=== PATIENT | female | born 1975 | race Caucasian/White ===

== ENCOUNTER 2016-07-05 09:42 | Emergency (ER) | payer SELFPAY ==
[~2016-07-05] VITALS: Wt 100.0 kg
[~2016-07-05 09:42] MED LIST: ALBU8.5H5 INH; DICY10CA60 PO; DIPH1TAB25 PO; HYDR-3498 PO; IBUP-1542 PO; NAPR-260 PO
[2016-07-06] MEDS ORDERED: CETI10CA PO (19:30)
[2016-07-06] MEDS ORDERED: GUAI473L22 PO (19:30)
[2016-07-06] MEDS ORDERED: ALBU8.5H3 INH (19:30)
[2016-07-06] MEDS ORDERED: IBUP-1542 PO (19:30)
[2016-07-06] MEDS ORDERED: PRED50TA PO (19:30)
== END 2016-07-05 10:45 | disposition left against medical advice (07) ==
LOC: FTE 09:42
DX: Z53.21 Procedure and treatment not carried out due to patient leaving prior to being seen by health care provider (principal)

== ENCOUNTER 2016-07-06 18:23 | Emergency (ER) | payer OTHER ==
[~2016-07-06] VITALS: Ht 162.6 cm; Wt 102.5 kg
[2016-07-06 19:17] VITALS: Ht 162.6 cm; Wt 102.5 kg
[2016-07-06] MEDS ORDERED: PRED50TA PO (19:30)
[2016-07-06] MEDS ORDERED: GUAI473L22 PO (19:30)
[2016-07-06] MEDS ORDERED: ALBU8.5H3 INH (19:30)
[2016-07-06] MEDS ORDERED: IBUP-1542 PO (19:30)
[2016-07-06] MEDS ORDERED: CETI10CA PO (19:30)
--- NOTE | 2016-07-06 19:39 | ERD ---
ER Documentation Chief Complaint Date/Time DATE: 07/06/16 TIME: 19:37 Chief Complaint cough x 3 days HPI 40-year-old female presents here in emergency department for complaints of cough for 3 days. Patient has been having dry cough, does not cough up any phlegm or blood. Patient Is a wheezing at times. Patient has been having runny nose, nasal congestion clear nasal discharge. Patient has been having on and off fever. Patient's son is sick with the same symptoms. Patient does not have any chest pain or palpitations. Patient denies any dyspnea on exertion or dyspnea on lying down. Patient did not take any medications of symptoms. ROS All systems reviewed and are negative except as per history of present illness. Medications Home Meds Active Scripts Prednisone* (Prednisone*) 50 Mg Tablet, 50 MG PO DAILY, #5 TAB Prov:ANEUDY HERNÁNDEZ NP 07/06/16 Cetirizine Hcl* (Zyrtec*) 10 Mg Capsule, 10 MG PO DAILY, #30 TAB.CHEW Prov:ANEUDY HERNÁNDEZ NP 07/06/16 Ibuprofen* (Motrin*) 600 Mg Tab, 600 MG PO Q6H Y for PAIN AND OR ELEVATED TEMP, #30 TAB Prov:ANEUDY HERNÁNDEZ NP 07/06/16 Albuterol Sulfate* (Proair HFA*) 8.5 Gm Hfa.aer.ad, 2 PUFF INH Q4H Y for WHEEZING AND SOB, #1 INHALER Prov:ANEUDY HERNÁNDEZ NP 07/06/16 Guaifenesin-Codeine Phosphate* (Guaifenesin* AC Cough Syrup) 473 Ml Liquid, 10 ML PO Q4H Y for COUGH, #120 ML Prov:ANEUDY HERNÁNDEZ NP 07/06/16 Ibuprofen* (Motrin*) 600 Mg Tab, 600 MG PO Q6, #30 TAB Prov:KAILEY COATS 01/04/16 Naproxen* (Naprosyn*) 500 Mg Tablet, 500 MG PO BID Y for PAIN AND/OR INFLAMMATION for 7 Days, TAB Prov:SMITA LANCASTER NP 03/08/15 Hydrocodone Bit-Acetaminophen* ([place]*) 5-325 Mg Tab, 1 TAB PO Q6 Y for PAIN, # 20 TAB Prov:ANEUDY HERNÁNDEZ GRIFFITH TGretel [employer] 02/05/15 Albuterol Sulfate* (Albuterol Sulfate* HFA) 8.5 Gm Hfa.aer.ad, 1-2 PUFF INH Q4 Y for SHORTNESS OF BREATH, #1 EA Prov:KAILEY COATS C 01/25/15 Diphenoxylate Hcl-Atropine* (Lomotil*) 1 Tab Tab, 1 TAB PO QID Y for DIARRHEA, # 10 Prov:BUSTAMANTE,NIDIA 11/01/14 Dicyclomine Hcl* (Bentyl*) 10 Mg Capsule, 10 MG PO QID Y for PAIN, #10 CAP Prov:BUSTAMANTE,NIDIA 11/01/14 Allergies Allergies: Coded Allergies: No Known Drug Allergies (Verified Allergy, Mild, 11/01/14) PMhx/Soc History of Surgery: Yes (cholecystectomy) Anesthesia Reaction: No Hx Neurological Disorder: No Hx Respiratory Disorders: Yes (asthma) Hx Cardiac Disorders: No Hx Psychiatric Problems: No Hx Miscellaneous Medical Probl: No Hx Alcohol Use: No Hx Substance Use: No Hx Tobacco Use: No FmHx Family History: No coronary disease, No diabetes, No other Physical Exam Vitals Vital Signs Date Time Temp Pulse Resp B/P Pulse Ox O2 Delivery O2 Flow Rate FiO2 07/06/16 19:17 100.5 98 20 125/88 100 Physical Exam GENERAL: The patient is well developed and appropriate for usual state of health, in no apparent distress. HEENT: Atraumatic. Ears: Normal tympanic membrane, no erythema or bulging. No ear canal swelling. No ear discharge. Nose: Erythematous nasal turbinates with clear nasal discharge. Throat: oropharynx erythematous with postnasal drip. No tonsillar swelling or tonsillar exudates. No lymphadenopathy. CHEST: Clear to auscultation bilaterally. There are no rales, wheezes or rhonchi. HEART: Regular rate and rhythm. No murmurs, clicks, rubs or gallops. No S3 or S4. ABDOMEN: Soft, nontender and nondistended. Good bowel sounds. No rebound or guarding. No gross peritonitis. No gross organomegaly or masses. No Campbell sign or McBurney point tenderness. BACK: No midline or flank tenderness. EXTREMITIES: Equal pulses bilaterally. There is no peripheral clubbing, cyanosis or edema. No focal swelling or erythema. Full range of motion. Grossly neurovascularly intact. NEURO: Alert and oriented. Cranial nerves 2-12 intact. Motor strength in all 4 extremities with 5/5 strength. Sensation grossly intact. Normal speech and gait. SKIN: There is no apparent rash or petechia. The skin is warm and dry. HEMATOLOGIC AND LYMPHATIC: There is no evidence of excessive bruising or lymphedema. No gross cervical, axillary, or inguinal lymphadenopathy. Procedures/MDM Medical Decision Making: Patient symptoms are most likely consistent with acute bronchitis, which viral in origin. There is low suspicion for Pneumonia at this time since patients lungs sounds are clear, patient O2 saturation is normal and patient doesnt show any respiratory distress. Radiology exam is not indicated at this time. Patient does not have any wheezing at this time. There is low suspicion for other cardiopulmonary emergencies at this time such as CHF , Pulmonary Embolism, Pneumothorax, Aortic Aneurysm or any other cardiopulmonary emergencies at this time. There is low suspicion for sepsis. Patient appears well and is hemodynamically stable. Fever is controlled with medicines. Disposition: Home. Condition: Stable Prescriptions: Guaifenesin with codeine, Zyrtec, ibuprofen, albuterol Instructions: Patient is advised to take medications as prescribed. Patient is advised to rest. Patient advised to increase fluid intake, do humidifier at home and if possible, do salt water gargles. Patient is advised that if symptoms are worse, shortness of breath, uncontrolled fever, stridor, vomiting, worst signs and symptoms to return to emergency department immediately. Otherwise, patient is advised to follow up with primary doctor in 5-7 days. Departure Diagnosis: Primary Impression: Acute bronchitis Bronchitis organism: unspecified organism Qualified Code: J20.9 - Acute bronchitis, unspecified organism Condition: Stable Patient Instructions: Bronchitis With Wheezing (Adult) ANEUDY HERNÁNDEZ NP Jul 06, 2016 19:39
== END 2016-07-06 19:32 | disposition home or self-care (01) ==
LOC: E/R 18:23
DX: J20.9 Acute bronchitis, unspecified (principal); J45.909 Unspecified asthma, uncomplicated
CPT/HCPCS: 99284

== ENCOUNTER 2016-07-25 20:37 | Emergency (ER) | payer OTHER ==
[~2016-07-25] VITALS: Ht 170.2 cm; Wt 97.7 kg
[~2016-07-25 20:37] MED LIST changes: +ALBU8.5H3 INH; +CETI10CA PO; +GUAI473L22 PO; +PRED50TA PO
[2016-07-25 21:17] VITALS: Ht 170.2 cm; Wt 97.7 kg
[2016-07-25] MEDS ORDERED: IBUPROFEN 600 MG TAB PO STA (22:51)
--- NOTE | 2016-07-25 23:34 | RADRPT ---
PROCEDURE: XR Chest. CLINICAL INDICATION: Shortness of breath. Cough TECHNIQUE: Portable AP semi erect view of the chest was obtained. COMPARISON: 01/25/2015 FINDINGS: The cardiomediastinal silhouette is within normal limits. The lungs are clear. There is no evidenc e for pleural effusion, pneumothorax or pulmonary vascular congestion. The osseous structures are i ntact with no evidence for acute abnormality. RPTAT:HJJR IMPRESSION: No evidence for acute intrathoracic pathology. Physician Yeison Date Time Electronically viewed and signed by Russ Ragland Physician on 07/25/2016 23:34 /
[2016-07-25] MEDS ORDERED: LORA1TAB54 PO (23:44)
[2016-07-25] MEDS ORDERED: IBUP400T22 PO (23:44)
[2016-07-25] MEDS ORDERED: ACET325T33 PO (23:44)
[2016-07-25 23:50] VITALS: BP 121/74; PULSE 93; RESP 18; TEMP 98.7
--- NOTE | 2016-09-25 16:50 | ERD ---
ER Documentation Chief Complaint Date/Time DATE: 07/25/16 TIME: 16:48 Chief Complaint COUGH, FEVER SORE THROAT X 4 DAYS. HPI This is a 40-year-old female presenting to the emergency department complaining of cough, fever, sore throat for the past 4 days. Patient is rating this moderate in severity. Patient does admit to having mild chest pain with cough. She denies any shortness of breath. She denies nausea, vomiting, diarrhea ROS All systems reviewed and are negative except as per history of present illness. Medications Home Meds Active Scripts Loratadine/Pseudoephedrine* (Claritin-D* 12 Hr) 5-120 Mg Tab.er.12h, 1 TAB PO Q12, #15 TAB.SA Prov:KIESHA HEDRICK PA-C 07/25/16 Acetaminophen* (Tylenol*) 325 Mg Tablet, 2 TAB PO Q6 Y for PAIN AND OR ELEVATED TEMP, #30 TAB Prov:KIESHA HEDRICK PA-C 07/25/16 Ibuprofen* (Motrin*) 400 Mg Tab, 400 MG PO Q6H Y for PAIN AND OR ELEVATED TEMP, #30 TAB Prov:KIESHA HEDRICK PA-C 07/25/16 Prednisone* (Prednisone*) 50 Mg Tablet, 50 MG PO DAILY, #5 TAB Prov:ANEUDY HERNÁNDEZ NP 07/06/16 Cetirizine Hcl* (Zyrtec*) 10 Mg Capsule, 10 MG PO DAILY, #30 TAB.CHEW Prov:ANEUDY HERNÁNDEZ NP 07/06/16 Ibuprofen* (Motrin*) 600 Mg Tab, 600 MG PO Q6H Y for PAIN AND OR ELEVATED TEMP, #30 TAB Prov:ANEUDY HERNÁNDEZ NP 07/06/16 Albuterol Sulfate* (Proair HFA*) 8.5 Gm Hfa.aer.ad, 2 PUFF INH Q4H Y for WHEEZING AND SOB, #1 INHALER Prov:ANEUDY HERNÁNDEZ NP 07/06/16 Guaifenesin-Codeine Phosphate* (Guaifenesin* AC Cough Syrup) 473 Ml Liquid, 10 ML PO Q4H Y for COUGH, #120 ML Prov:ANEUDY HERNÁNDEZ LVN LPN 07/06/16 Ibuprofen* (Motrin*) 600 Mg Tab, 600 MG PO Q6, #30 TAB Prov:KAILEY COATS 01/04/16 Naproxen* (Naprosyn*) 500 Mg Tablet, 500 MG PO BID Y for PAIN AND/OR INFLAMMATION for 7 Days, TAB Prov:LANCASTERSMITA STONER I. LVN LPN 03/08/15 Hydrocodone Bit-Acetaminophen* ([place]*) 5-325 Mg Tab, 1 TAB PO Q6 Y for PAIN, # 20 TAB Prov:ANEUDY HERNÁNDEZ LVN LPN 02/05/15 Albuterol Sulfate* (Albuterol Sulfate* HFA) 8.5 Gm Hfa.aer.ad, 1-2 PUFF INH Q4 Y for SHORTNESS OF BREATH, #1 EA Prov:KAILEY COATS 01/25/15 Diphenoxylate Hcl-Atropine* (Lomotil*) 1 Tab Tab, 1 TAB PO QID Y for DIARRHEA, # 10 Prov:BUSTAMANTE,NIDIA 11/01/14 Dicyclomine Hcl* (Bentyl*) 10 Mg Capsule, 10 MG PO QID Y for PAIN, #10 CAP Prov:BUSTAMANTE,NIDIA 11/01/14 Allergies Allergies: Coded Allergies: No Known Drug Allergies (Verified Allergy, Mild, 11/01/14) PMhx/Soc History of Surgery: Yes (cholecystectomy) Anesthesia Reaction: No Hx Neurological Disorder: No Hx Respiratory Disorders: Yes (asthma) Hx Cardiac Disorders: No Hx Psychiatric Problems: No Hx Miscellaneous Medical Probl: No Hx Alcohol Use: No Hx Substance Use: No Hx Tobacco Use: No Smoking Status: Never smoker Physical Exam Physical Exam GENERAL: well-developed/well-nourished, in no apparent distress, non-toxic appearing HEAD: NC/AT, no swelling noted in frontal or maxillary areas EARS: bilateral tympanic membrane is intact without erythema or effusion NARES: congested THROAT: oropharynx erythematous without exudates, no tonsil enlargement, post nasal drip EYES: Conjunctiva normal NECK: Supple, no lymphadenopathy PULM: CTA bilaterally, no rales, rhonchi, or wheezing heard CV: Normal S1S2, RRR, good capillary refill GI: Soft, non-distended, normal bowel sounds, non-tender BACK: No midline tenderness, no masses EXT No clubbing, cyanosis, or edema NEURO: Alert and Orientated SKIN: Intact, normal turgor PSYCH: Normal mood and mentation Results 24 hrs Current Medications Medications (Trade) Dose Ordered Sig/[place] Route PRN Reason Start Time Stop Time Status Last Admin Dose Admin Ibuprofen (Motrin) 600 mg ONCE STAT PO 07/25/16 22:51 07/25/16 22:53 DC 07/25/16 23:12 Procedures/MDM MDM: 40-year-old female presents to the ER with upper respiratory infection, which is most likely viral. My clinical suspicion is low suspicion for pneumonia , strep pharyngitis, or pulmonary emergencies due to physical examination. Patient's lungs were clear on examination. X-ray of the chest has been done in the ED and radiologist stated: No evidence for acute intrathoracic pathology. There is no evidence of any pneumothorax, pleural effusion or infiltrates. hemodynamically stable for discharge. Prescription given to patient, discussed to return to the ED if not improving as expected or follow-up with a primary care physician. Patient understood and agreed with this plan. Departure Diagnosis: Primary Impression: URI (upper respiratory infection) Condition: Stable Patient Instructions: Preventing Common Respiratory Infections, Uri, Viral, No Abx (Adult) Additional Instructions: Visite a cesar jigna giraldo para un EXAMEN.Regrese a estas instalaciones si no se mejora jackie esperbamos o jackie le dijimos. [place] toda la medicina carol y jackie se le indic. Regrese a estas instalaciones si no se mejora jackie esperbamos o jackie le dijimos. KIESHA HEDRICK PA-C Sep 25, 2016 16:50
== END 2016-07-25 23:50 | disposition home or self-care (01) ==
LOC: FTE 20:37
DX: J06.9 Acute upper respiratory infection, unspecified (principal); J45.909 Unspecified asthma, uncomplicated
CPT/HCPCS: 71010; Z7610

== ENCOUNTER 2016-10-07 20:55 | Emergency (ER) | payer OTHER ==
[~2016-10-07] VITALS: Ht 167.6 cm; Wt 104.5 kg
[~2016-10-07 20:55] MED LIST changes: +ACET325T33 PO; +IBUP400T22 PO; +LORA1TAB54 PO
[2016-10-07 20:59] VITALS: Ht 167.6 cm; Wt 104.5 kg
[2016-10-07] MEDS ORDERED: DEXAMETHASONE 10 MG/ML 1 ML INJ IM ONE (21:30)
[2016-10-07] MEDS ORDERED: ACETAMINOPHEN 325 MG TAB PO ONE (21:30)
[2016-10-07] MEDS ORDERED: AMOXICILLIN 500 MG CAP PO ONE (21:30)
[2016-10-07] MEDS ORDERED: AMO500 PO (21:32)
[2016-10-07] MEDS ORDERED: IBUP-1542 PO (21:32)
--- NOTE | 2016-10-07 23:39 | ERD ---
ER Documentation Chief Complaint Date/Time DATE: 10/07/16 TIME: 23:38 Chief Complaint both earache, sore throat x 2 days, fever HPI Patient is a 40-year-old female with asthma presents with sore throat. The patient also has swelling of the throat. The symptoms started yesterday. She has bilateral ear pain. She has fever and chills. She tried Advil today at 3 PM. She does not know the name of her primary doctor. ROS All systems reviewed and are negative except as per history of present illness. Medications Home Meds Active Scripts Amoxicillin* (Amoxicillin*) 500 Mg Cap, 500 MG PO TID for 10 Days, CAP Prov:JACKIE SIMON MD 10/07/16 Ibuprofen* (Motrin*) 600 Mg Tab, 600 MG PO Q6H Y for PAIN AND OR ELEVATED TEMP, #30 TAB Prov:JACKIE SIMON MD 10/07/16 Loratadine/Pseudoephedrine* (Claritin-D* 12 Hr) 5-120 Mg Tab.er.12h, 1 TAB PO Q12, #15 TAB.SA Prov:KIESHA HEDRICK PA-C 07/25/16 Acetaminophen* (Tylenol*) 325 Mg Tablet, 2 TAB PO Q6 Y for PAIN AND OR ELEVATED TEMP, #30 TAB Prov:KIESHA HEDRICK PA-C 07/25/16 Ibuprofen* (Motrin*) 400 Mg Tab, 400 MG PO Q6H Y for PAIN AND OR ELEVATED TEMP, #30 TAB Prov:KIESHA HEDRICK PA-C 07/25/16 Prednisone* (Prednisone*) 50 Mg Tablet, 50 MG PO DAILY, #5 TAB Prov:ANEUDY HERNÁNDEZ NP 07/06/16 Cetirizine Hcl* (Zyrtec*) 10 Mg Capsule, 10 MG PO DAILY, #30 TAB.CHEW Prov:ANEUDY HERNÁNDEZ NP 07/06/16 Ibuprofen* (Motrin*) 600 Mg Tab, 600 MG PO Q6H Y for PAIN AND OR ELEVATED TEMP, #30 TAB Prov:ANEUDY HERNÁNDEZ NP 07/06/16 Albuterol Sulfate* (Proair HFA*) 8.5 Gm Hfa.aer.ad, 2 PUFF INH Q4H Y for WHEEZING AND SOB, #1 INHALER Prov:ANEUDY HERNÁNDEZ [employer]ARDWO[employer]ER 07/06/16 Guaifenesin-Codeine Phosphate* (Guaifenesin* AC Cough Syrup) 473 Ml Liquid, 10 ML PO Q4H Y for COUGH, #120 ML Prov:ANEUDY HERNÁNDEZ HARDWO[employer] F[employer]ER 07/06/16 Ibuprofen* (Motrin*) 600 Mg Tab, 600 MG PO Q6, #30 TAB Prov:KAILEY COATS 01/04/16 Naproxen* (Naprosyn*) 500 Mg Tablet, 500 MG PO BID Y for PAIN AND/OR INFLAMMATION for 7 Days, TAB Prov:SMITA LANCASTER I. HARDWOOD FALLER 03/08/15 Hydrocodone Bit-Acetaminophen* ([place]*) 5-325 Mg Tab, 1 TAB PO Q6 Y for PAIN, # 20 TAB Prov:ANEUDY HERNÁNDEZ HARD[employer] F[employer]ER 02/05/15 Albuterol Sulfate* (Albuterol Sulfate* HFA) 8.5 Gm Hfa.aer.ad, 1-2 PUFF INH Q4 Y for SHORTNESS OF BREATH, #1 EA Prov:KAILEY COATS 01/25/15 Diphenoxylate Hcl-Atropine* (Lomotil*) 1 Tab Tab, 1 TAB PO QID Y for DIARRHEA, # 10 Prov:BUSTAMANTE,NIDIA 11/01/14 Dicyclomine Hcl* (Bentyl*) 10 Mg Capsule, 10 MG PO QID Y for PAIN, #10 CAP Prov:BUSTAMANTE,NIDIA 11/01/14 Allergies Allergies: Coded Allergies: No Known Drug Allergies (Verified Allergy, Mild, 11/01/14) PMhx/Soc History of Surgery: Yes (cholecystectomy, c section x4) Anesthesia Reaction: No Hx Neurological Disorder: No Hx Respiratory Disorders: Yes (asthma) Hx Cardiac Disorders: No Hx Psychiatric Problems: No Hx Miscellaneous Medical Probl: No Hx Alcohol Use: No Hx Substance Use: No Hx Tobacco Use: No FmHx Family History: No diabetes Physical Exam Vitals Vital Signs Date Time Temp Pulse Resp B/P Pulse Ox O2 Delivery O2 Flow Rate FiO2 10/07/16 20:59 101.8 125 20 143/85 100 Physical Exam Const: Mild distress Head: Atraumatic Eyes: Normal Conjunctiva ENT: The patient has swelling of the right and left tonsils with the right being greater than the left, there is no stridor over the neck, this is the appearance of pharyngitis Neck: Full range of motion..~ No meningismus. Resp: Clear to auscultation bilaterally Cardio: Regular rate and rhythm, no murmurs Abd: Soft, non tender, non distended. Normal bowel sounds Skin: No petechiae or rashes Back: No midline or flank tenderness Ext: No cyanosis, or edema Neur: Awake and alert Psych: Normal Mood and Affect Results 24 hrs Current Medications Medications (Trade) Dose Ordered Sig/[place] Route PRN Reason Start Time Stop Time Status Last Admin Dose Admin Acetaminophen (Tylenol Tab) 650 mg ONCE ONCE PO 10/07/16 21:30 10/07/16 21:31 DC 10/07/16 21:54 Dexamethasone (Decadron) 10 mg ONCE ONCE IM 10/07/16 21:30 10/07/16 21:31 DC 10/07/16 21:54 Amoxicillin (Amoxicillin) 500 mg ONCE ONCE PO 10/07/16 21:30 10/07/16 21:31 DC 10/07/16 21:54 Procedures/MDM Patient is a 32-year-old female who presents with what appears to be an acute pharyngitis. I will treat her with amoxicillin, Decadron, and Tylenol in the emergency department. She did have fever and tachycardia which I believe is related to the fever. At this point I doubt retropharyngeal abscess, peritonsillar abscess, or epiglottitis. I believe outpatient management is appropriate but the patient will need close follow-up with her primary doctor within 24-48 hours. She can return for any worsening symptoms. She will be given a prescription for amoxicillin and ibuprofen. Departure Diagnosis: Primary Impression: Pharyngitis Pharyngitis/tonsillitis etiology: unspecified etiology Qualified Code: J02.9 - Pharyngitis, unspecified etiology Condition: Fair Patient Instructions: Pharyngitis, Strep (Presumed) Additional Instructions: Llame al doctor MAANA y zehra simeon AMINAH PARA DENTRO DE 1-2 SAHNI.Dgale a la secretaria que nosotros le instruimos hacer esta aminah.Avise o llame si cesar condicin se empeora antes de la aminah. Regresa aqui si peor o no mejor. JACKIE SIMON MD October 07, 2016 23:39
== END 2016-10-07 22:10 | disposition home or self-care (01) ==
LOC: FTE 20:55
DX: J02.9 Acute pharyngitis, unspecified (principal); J45.909 Unspecified asthma, uncomplicated
CPT/HCPCS: 96372; J1100; Z7502; Z7610

== ENCOUNTER 2017-06-03 19:59 | Emergency (ER) | END 2017-06-03 21:24 | disposition left against medical advice (07) ==

== ENCOUNTER 2018-04-16 19:34 | Emergency (ER) | END 2018-04-16 21:35 | disposition home or self-care (01) ==

== ENCOUNTER 2018-07-28 15:44 | Emergency (ER) | payer OTHER ==
[~2018-07-28] VITALS: Ht 170.2 cm; Wt 93.8 kg
[~2018-07-28 15:44] MED LIST changes: +ALBU18HF INHALATION; -ALBU8.5H3 INH; +ALBU8.5H8 INH; +AMOX500C2 PO; +BENZ200C68 PO; +DICY10CA40 PO; -DICY10CA60 PO; +FLUT9.9S NASAL; +IBUP-1561 PO; -IBUP400T22 PO; +IBUP800T48 PO; -NAPR-260 PO; +NAPR-985 PO
[2018-07-28 15:47] VITALS: Ht 170.2 cm; Wt 93.8 kg
[2018-07-28] MEDS ORDERED: KETOROLAC 15 MG INJ IV STA (18:05)
--- NOTE | 2018-07-28 18:09 | ERD ---
ER Documentation Chief Complaint Chief Complaint ST x 2 days, swollen tonsils on R, no OTC since 0900 HPI 42-year-old female, previously healthy, presents to the emergency department, complaining of 2 days with worsening of sore throat, predominantly on the right side, associated with fever, headache and general malaise. The patient denies cough, no runny nose, no difficulty swallowing, no shortness of breath. The patient has been taking [id number] medication without improvement of the symptoms. ROS All systems reviewed and are negative except as per history of present illness. Medications Home Meds Active Scripts Prednisone* (Prednisone*) 20 Mg Tab, 40 MG PO DAILY for 4 Days, TAB Prov:ANTHONY JOHNSON MD 07/28/18 Ibuprofen* (Motrin*) 600 Mg Tab, 600 MG PO Q8, #20 TAB Prov:ANTHONY JOHNSON MD 07/28/18 Amoxicillin/Potassium Clav (Amox-Clav 875-125 mg Tablet) 875-125 mg Tab, 1 TAB PO BID for 7 Days, #14 TAB Prov:ANTHONY JOHNSON MD 07/28/18 Albuterol Sulfate* (Ventolin HFA*) 18 Gm Hfa.aer.ad, 2 PUFF INHALATION Q4H, #1 INHALER Prov:MARYLOU BECK PA-C 04/16/18 Fluticasone Propionate (Flonase Allergy Relief) 9.9 Ml [place].susp, 1 SPRAY NASAL BID, #1 BOTTLE TO EACH NOSTRIL Prov:MARYLOU BECK PA-C 04/16/18 Benzonatate* (Benzonatate*) 200 Mg Capsule, 200 MG PO TID PRN for COUGH, #20 CAP Prov:MARYLOU BECK PA-C 04/16/18 Ibuprofen* (Motrin*) 800 Mg Tab, 800 MG PO Q6, #30 TAB Prov:MARYLOU BECK PA-C 04/16/18 Amoxicillin* (Amoxicillin*) 500 Mg Cap, 500 MG PO TID for 10 Days, CAP Prov:JACKIE SIMON MD 10/07/16 Ibuprofen* (Motrin*) 600 Mg Tab, 600 MG PO Q6H PRN for PAIN AND OR ELEVATED TEMP, #30 TAB Prov:JACKIE SIMON MD 10/07/16 Loratadine/Pseudoephedrine* (Claritin-D* 12 Hr) 5-120 Mg Tab.er.12h, 1 TAB PO Q12, #15 TAB.SA Prov:KIESHA HEDRICK PA-C 07/25/16 Acetaminophen* (Tylenol*) 325 Mg Tablet, 2 TAB PO Q6 PRN for PAIN AND OR ELEVATED TEMP, #30 TAB Prov:KIESHA HEDRICK PA-C 07/25/16 Ibuprofen* (Motrin*) 400 Mg Tab, 400 MG PO Q6H PRN for PAIN AND OR ELEVATED TEMP, #30 TAB Prov:KIESHA HEDRICK PA-C 07/25/16 Prednisone* (Prednisone*) 50 Mg Tablet, 50 MG PO DAILY, #5 TAB Prov:ANEUDY HERNÁNDEZ NP 07/06/16 Cetirizine Hcl* (Zyrtec*) 10 Mg Capsule, 10 MG PO DAILY, #30 TAB.CHEW Prov:ANEUDY HERNÁNDEZ NP 07/06/16 Ibuprofen* (Motrin*) 600 Mg Tab, 600 MG PO Q6H PRN for PAIN AND OR ELEVATED TEMP, #30 TAB Prov:ANEUDY HERNÁNDEZ NP 07/06/16 Albuterol Sulfate* (Proair HFA*) 8.5 Gm Hfa.aer.ad, 2 PUFF INH Q4H PRN for WHEEZING AND SOB, #1 INHALER Prov:ANEUDY HERNÁNDEZ NP 07/06/16 Guaifenesin-Codeine Phosphate* (Guaifenesin* AC Cough Syrup) 473 Ml Liquid, 10 ML PO Q4H PRN for COUGH, #120 ML Prov:ANEUDY HERNÁNDEZ NP 07/06/16 Ibuprofen* (Motrin*) 600 Mg Tab, 600 MG PO Q6, #30 TAB Prov:KAILEY COATS 01/04/16 Naproxen* (Naprosyn*) 500 Mg Tablet, 500 MG PO BID PRN for PAIN AND/OR INFLAMMATION for 7 Days, TAB Prov:SMITA LANCASTER NP 03/08/15 Hydrocodone Bit-Acetaminophen* ([place]*) 5-325 Mg Tab, 1 TAB PO Q6 PRN for PAIN, #20 TAB Prov:ANEUDY HERNÁNDEZ. [employer] 02/05/15 Albuterol Sulfate* (Albuterol Sulfate* HFA) 8.5 Gm Hfa.aer.ad, 1-2 PUFF INH Q4 PRN for SHORTNESS OF BREATH, #1 EA Prov:KAILEY COATS C 01/25/15 Diphenoxylate Hcl-Atropine* (Lomotil*) 1 Tab Tab, 1 TAB PO QID PRN for DIARRHEA, #10 Prov:BUSATMANTE,NIDIA 11/01/14 Dicyclomine HCl (Dicyclomine HCl) 10 Mg Capsule, 10 MG PO QID PRN for PAIN, #10 CAP Prov:BUSTAMANTE,NIDIA 11/01/14 Allergies Allergies: Coded Allergies: No Known Drug Allergies (Verified Allergy, Mild, 07/28/18) PMhx/Soc History of Surgery: Yes (cholecystectomy, c section x4) Anesthesia Reaction: No Hx Neurological Disorder: No Hx Respiratory Disorders: Yes (asthma) Hx Cardiac Disorders: No Hx Psychiatric Problems: No Hx Miscellaneous Medical Probl: No Hx Alcohol Use: No Hx Substance Use: No Hx Tobacco Use: No Smoking Status: Never smoker FmHx Family History: diabetes; No coronary disease Physical Exam Vitals Vital Signs Date Temp Pulse Resp B/P (MAP) Pulse Ox O2 O2 Flow FiO2 Time Delivery Rate 07/28/18 98.1 96 20 104/62 97 Room Air 20:51 (76) 07/28/18 100.5 20:12 07/28/18 101.5 109 20 123/67 100 15:47 (85) Physical Exam Patient alert, oriented, vital signs showed fever. HEENT: Normocephalic, atraumatic. EYES: PERRLA, EOMI, Sclera and conjunctiva appear normal. EARS: Canals clear, tympanic membranes WNL. THROAT: Erythematous oropharynx, tonsils are enlarged, with bilateral exudate, worse in the right side. No uvular deviation. NECK: Supple, No lymphadenopathy. Full ROM without pain or tenderness. HEART: RRR, no rubs, murmurs, clicks or gallops. LUNGS: Clear to auscultation. ABDOMEN: Soft, non-tender without masses or hepatosplenomegaly. EXTREMITIES: No edema bilaterally. BACK: Full ROM, no deformity, normal back exam NEURO: Cranial nerves grossly intact, no motor or sensory deficit Results 24 hrs Laboratory Tests Test 07/28/18 19:12 POC Beta HCG, Qualitative NEGATIVE Current Medications Medications Dose Sig/[place] Start Time Status Last (Trade) Ordered Route PRN Stop Time Admin Dose Reason Admin Sodium 1,000 ml @ Q1H ONCE 07/28/18 DC 07/28/18 Chloride 1,000 mls/hr IV 18:30 07/28/18 18:40 19:29 Ketorolac 15 mg ONCE STAT 07/28/18 DC 07/28/18 Tromethamine IV 18:05 07/28/18 19:15 (Toradol) 18:17 320 mg ONCE ONCE 07/28/18 DC 07/28/18 Acetaminophen PO 18:30 07/28/18 18:39 (Tylenol 18:31 Liquid) Cefazolin 50 ml @ ONCE ONCE 07/28/18 DC 07/28/18 Sodium/ 100 mls/hr IVPB 18:30 07/28/18 18:49 Dextrose 18:59 10 mg ONCE ONCE 07/28/18 DC 07/28/18 Dexamethasone IV 18:30 07/28/18 18:40 (Decadron) 18:31 320 mg ONCE ONCE 07/28/18 DC 07/28/18 Acetaminophen PO 20:30 07/28/18 20:12 (Tylenol 20:31 Liquid (Ped)) Procedures/MDM Differential diagnosis include but not limited to: Tonsillar/pharyngeal infection bacterial/viral/fungal, parotitis, allergies, GERD. Less likely peritonsillar abscess, retropharyngeal abscess. No signs of upper respiratory obstruction Physical examination and clinical presentation consistent most likely with acute suppurative tonsillitis. Centor criteria 4/5. During the ED course the patient remained stable, fever resolved with medications given in the ER, no new complaints. Clinical impression discussed with the patient who agrees with management. The patient is stable to be treated outpatient and will be discharged home with a Rx for antibiotic and ibuprofen. Some side effects of prescribed medications (headache, rash, nausea, vomiting, diarrhea, drowsiness, habituation, bleeding, hypertension, interactions with other medications) were reviewed. The patient was instructed to follow up with the primary care provider in the next 48h. If symptoms persist, worsen or new symptoms develop, then patient should return to the ED immediately. Disclaimer: Inadvertent spelling and grammatical errors are likely due to EHR/dictation software use and do not reflect on the overall quality of patient care. Also, please note that the electronic time recorded on this note does not necessarily reflect the actual time of the patient encounter. Departure Diagnosis: Primary Impression: Acute suppurative tonsillitis Condition: Stable Additional Instructions: Muchas gino por [facility] para cesar servicio. Esperamos que en cesar visita a la pamella de emergencia cesar problema medico haya sido solucionado y que se sienta mucho mejor. Para estar seguros que cesar mejoria sigue en proceso, le pedimos el favor de hacer simeon karla de seguimiento medico con cesar doctor primario en los proximos 2-4 freitas. Lleve con usted estos documentos y las medicinas recetadas. Si trinidad sintomas empeoran, NO SE ESPERE, por favor regrese a pamella de emergencia INMEDIATAMENTE. En [place] que usted no tenga un mdico de atencin primaria: Llame al mdico o clnica comunitaria de referencia que aparece abajo ivonne las horas de consultorio para hacer simeon karla para que le vean. CLINICAS: [facility] [phone] [facility] [phone] [place] [phone] [facility] [phone] [facility] [phone] [facility] [phone] MD Jul 28, 2018 18:09
[2018-07-28] MEDS ORDERED: DEXAMETHASONE 10 MG/ML 1 ML INJ IV ONE (18:30)
[2018-07-28] MEDS ORDERED: ACETAMINOPHEN 650MG/20.3ML CUP PO ONE (18:30)
[2018-07-28] MEDS ORDERED: CEFAZOLIN 2 GM/50 ML (PMX) 50 ML IVPB ONE (18:30)
[2018-07-28] MEDS ORDERED: SOD CHLORIDE 0.9% 1,000 ML IV ONE (18:30)
[2018-07-28] MEDS ORDERED: IBUP-1542 PO (20:02)
[2018-07-28] MEDS ORDERED: PRED20TA PO (20:02)
[2018-07-28] MEDS ORDERED: AMOX1TAB10 PO (20:02)
[2018-07-28] MEDS ORDERED: ACETAMINOPHEN 160 MG/5ML CUP PO ONE (20:30)
[2018-07-28 20:51] VITALS: BP 104/62; PULSE 96; RESP 20
== END 2018-07-28 20:52 | disposition home or self-care (01) ==
LOC: FTE 15:44
DX: J03.90 Acute tonsillitis, unspecified (principal); J45.909 Unspecified asthma, uncomplicated
CPT/HCPCS: 81025; 96374; 96375; J0690; J1100; J1885; J7030; Z7502; Z7610